=== PATIENT | male | born 1955 | race Caucasian/White ===

== ENCOUNTER 2019-08-29 04:12 | Inpatient (IN) ==
[2019-08-29] MEDS ORDERED: Furosemide 40 MG/4 ML VIAL ONE ×2 (04:19→19:17)
[2019-08-29] MEDS ORDERED: Furosemide 40 MG/4 ML VIAL IVP ONE ×2 (04:20→19:22)
[2019-08-29] MEDS ORDERED: methylPREDNISolone 125 MG/2 ML VIAL IVP ONE (04:27)
[2019-08-29 04:35] LABS: ABG Base Excess -9 mEq/L (-2 to 3); ABG HCO3 21 mEq/L (21-27); ABG Oxygen Saturation 100 % (95-98); ABG PCO2 60 mmHg (35-45); ABG PH 7.16 pH Units (7.32-7.45); ABG PO2 210 mmHg (85-104); ABG TCO2 23 mEq/L (20-26)
[2019-08-29 04:56] LABS: Eosinophils % 0.1 %; Red Cell Distribution Width 13.6 % (11.5-14.5)
[2019-08-29 04:58] LABS: Basophils # 0.1 K/mcL (0.0-0.2); Basophils % 0.3 %; Hematocrit 50.8 % (37.5-50.1); Hemoglobin 17.3 g/dL (12.9-16.9); Immature Granulocytes % 2.8 % (0-4); Lymphocytes # 2.4 K/mcL (0.6-4.6); Lymphocytes % 8.4 %; Mean Corpuscular HGB Conc 34.1 g/dL (31.6-35.5); Mean Corpuscular Hemoglobin 32.3 pg (28.0-33.3); Mean Platelet Volume 10.3 fL (9.4-12.4); Monocytes # 1.6 K/mcL (0.0-1.3); Monocytes % 5.4 %; Neutrophils # 23.9 K/mcL (1.6-8.9); Platelet Count 511 K/mcL (140-400); Red Blood Count 5.35 M/mcL (4.19-5.50); White Blood Count 28.8 K/mcL (4.3-11.1)
[2019-08-29 04:59] LABS: Prothrombin Time 11.5 Seconds (9.4-12.1)
[2019-08-29 05:17] LABS: BUN/Creatinine Ratio 7 (6-26); Blood Urea Nitrogen 9 mg/dL (8-23); Calcium 9.6 mg/dL (8.6-10.3); Carbon Dioxide 19 mEq/L (23-29); Chloride 98 mEq/L (98-107); Glucose 310 mg/dL (70-105); Osmolality,Calculated 286 (280-300); Potassium 3.6 mEq/L (3.5-5.1); Sodium 133 mEq/L (136-145); eGFR For African Americans > 60 (> 60); eGFR For Non-African Americans 53 (> 60)
[2019-08-29 05:20] LABS: Troponin I 0.29 ng/mL (< 0.04)
[2019-08-29] MEDS ORDERED: Aspirin 81 MG TAB.CHEW PO ONE (05:20)
[2019-08-29 05:40] LABS: ABG Base Excess -5 mEq/L (-2 to 3); ABG HCO3 21 mEq/L (21-27); ABG Oxygen Saturation 94 % (95-98); ABG PCO2 43 mmHg (35-45); ABG PO2 81 mmHg (85-104); ABG TCO2 23 mEq/L (20-26)
[2019-08-29] MEDS ORDERED: cefTRIAXone 1,000 MG in 0.9 % Sodium Chloride Mini Bag 100 ML IVPB ONE (06:11)
[2019-08-29] MEDS ORDERED: Azithromycin 500 MG in 0.9 % Sodium Chloride 250 ML IVPB ONE (06:11)
[2019-08-29] MEDS ORDERED: *HR* Heparin 5,000 UNIT/ML VIAL IVP PRN (06:11)
[2019-08-29] MEDS ORDERED: *HR* Heparin 5,000 UNIT/ML VIAL IVP ONE (06:11)
[2019-08-29] MEDS: Heparin 25,000 UNIT/250 ML D5W 25,000 UNIT/250 ML IV.SOLN IVC SCH (06:22)
[2019-08-29] MEDS ORDERED: *HR* Midazolam HCl 2 MG/2 ML VIAL IV ONE (06:23)
[2019-08-29] MEDS ORDERED: *HR* Etomidate 20 MG/10 ML AMPUL IVP ONE (06:23)
[2019-08-29] MEDS ORDERED: *HR* Midazolam HCl 5 MG/5 ML VIAL IVP ONE (06:23)
[2019-08-29] MEDS ORDERED: Naloxone 0.4 MG/ML INJ IVP PRN (07:26)
[2019-08-29] MEDS ORDERED: *HR* FentaNYL (PF) 100 MCG/2 ML VIAL ONE (07:41)
[2019-08-29] MEDS ORDERED: Ringers Solution, Lactated 1,000 ML ONE (07:41)
[2019-08-29] MEDS ORDERED: Perflutren Lipid Microsphere 1.3 ML in 0.9 % Sodium Chloride 8.7 ML IVP ONE ×2 (08:09→13:38)
[2019-08-29] MEDS: FentaNYL (PF) 1,000 MCG in 0.9 % Sodium Chloride 80 ML IVC SCH (08:15)
[2019-08-29] MEDS ORDERED: *HR* Phenylephrine 10 MG/ML VIAL ONE (08:29)
[2019-08-29] MEDS ORDERED: Phentolamine Mesylate 5 MG VIAL IJ ONE (08:30)
[2019-08-29] MEDS ORDERED: *HR* Phenylephrine 10 MG/ML VIAL IVC ONE (08:45)
[2019-08-29] MEDS ORDERED: *HR* FentaNYL (PF) 100 MCG/2 ML VIAL IVP ONE (08:46)
[2019-08-29] MEDS ORDERED: CLEAR EYES NATURAL TEARS 15 ML BOTTLE BOTH EYES PRN (09:32)
[2019-08-29] MEDS ORDERED: cefTRIAXone 1,000 MG in Water for inj. (sterile) 10 ML IVP ONE (09:54)
[2019-08-29] MEDS ORDERED: Dextrose Gel 15 GM/37.5 ML TUBE PO PRN ×2 (10:01)
[2019-08-29] MEDS ORDERED: D5% in Water 1,000 ML IVC PRN (10:01)
[2019-08-29] MEDS ORDERED: *HR* Dextrose 50 % in Water (Syg) 50 ML SYRINGE IVP PRN (10:01)
[2019-08-29 11:20] LABS: ABG Base Excess -4 mEq/L (-2 to 3); ABG HCO3 22 mEq/L (21-27); ABG Oxygen Saturation 99 % (95-98); ABG PCO2 41 mmHg (35-45); ABG PH 7.34 pH Units (7.32-7.45); ABG PO2 128 mmHg (85-104); ABG TCO2 23 mEq/L (20-26); Blood Gas Modality AF; Blood Gas VT 500 cc
[2019-08-29] MEDS: Pantoprazole 40 MG VIAL IVP SCH (11:55)
[2019-08-29] MEDS: CLEAR EYES NATURAL TEARS 15 ML BOTTLE BOTH EYES SCH ×4 (11:56→23:20)
[2019-08-29] MEDS: Insulin LISPRO 300 UNITS/3 ML VIAL SQ SCH ×3 (11:56→23:20)
[2019-08-29 12:47] LABS: Adenovirus Not Detected (Not Detect); Bordetella Pertussis Not Detected (Not Detect); Chlamydophila pneumoniae Not Detected (Not Detect); Coronavirus 229E Not Detected (Not Detect); Coronavirus HKU1 Not Detected (Not Detect); Coronavirus NL63 Not Detected (Not Detect); Coronavirus OC43 Not Detected (Not Detect); Human Metapneumovirus Not Detected (Not Detect); Human Rhinovirus/Enterovirus Not Detected (Not Detect); Influenza A Subtype 2009 H1 Not Detected (Not Detect); Influenza B Not Detected (Not Detect); Mycoplasma pneumoniae Not Detected (Not Detect); Parainfluenza Virus 1 Not Detected (Not Detect); Parainfluenza Virus 2 Not Detected (Not Detect); Parainfluenza Virus 3 Not Detected (Not Detect); Parainfluenza Virus 4 Not Detected (Not Detect)
[2019-08-29] MEDS ORDERED: 0.9 % Sodium Chloride 500 ML ONE (13:08)
[2019-08-29 17:16] LABS: Troponin I 15.44 ng/mL (< 0.04)
[2019-08-29] MEDS ORDERED: Furosemide 20 MG/2 ML VIAL IVP ONE (17:22)
[2019-08-29] MEDS: *HR* Heparin 5,000 UNIT/ML VIAL IVP PRN (17:33)
[2019-08-29] MEDS: Norepinephrine 4 MG in 0.9 % Sodium Chloride 250 ML IVC SCH (19:55)
[2019-08-29] MEDS: Chlorhexidine Rinse 15 ML MOUTHWASH MM SCH (19:57)
[2019-08-29 21:15] LABS: Albumin 3.8 g/dL (3.5-5.7); Albumin/Globulin Ratio 1.3 (1.1-2.2); Bilirubin,Direct 0.1 mg/dL (0.0-0.2); Bilirubin,Indirect 0.3 mg/dL (0.0-1.0); Bilirubin,Total 0.4 mg/dL (0.3-1.0); Globulin 2.9 g/dL (2.4-3.5); Potassium 4.4 mEq/L (3.5-5.1); Total Protein 6.7 g/dL (6.4-8.9)
[2019-08-29] MEDS: Levalbuterol Neb 1.25 MG/3 ML IH PRN (23:17)
[2019-08-30] MEDS ORDERED: Albumin 25% 25gram/100mL 25 GM/100 ML IV.SOLN IVPB ONE (00:30)
[2019-08-30] MEDS: FentaNYL (PF) 1,000 MCG in 0.9 % Sodium Chloride 80 ML IVC SCH ×2 (02:06→17:56)
[2019-08-30] MEDS ORDERED: Furosemide 40 MG/4 ML VIAL IVP ONE (02:14)
[2019-08-30] MEDS: CLEAR EYES NATURAL TEARS 15 ML BOTTLE BOTH EYES SCH ×6 (03:01→23:28)
[2019-08-30 03:47] LABS: ABG Base Excess 0 mEq/L (-2 to 3); ABG HCO3 24 mEq/L (21-27); ABG Oxygen Saturation 96 % (95-98); ABG PCO2 37 mmHg (35-45); ABG PH 7.42 pH Units (7.32-7.45); ABG PO2 82 mmHg (85-104); ABG TCO2 25 mEq/L (20-26); Blood Gas Modality ASSIST CONTROL; Blood Gas VT 500 cc
[2019-08-30 03:54] LABS: Eosinophils % 0.1 %; Lymphocytes % 4.3 %; Mean Platelet Volume 10.3 fL (9.4-12.4); Red Cell Distribution Width 13.7 % (11.5-14.5)
[2019-08-30 03:56] LABS: Basophils # 0.1 K/mcL (0.0-0.2); Basophils % 0.2 %; Hemoglobin 15.9 g/dL (12.9-16.9); Immature Granulocytes % 0.8 % (0-4); Lymphocytes # 1.2 K/mcL (0.6-4.6); Mean Corpuscular HGB Conc 34.6 g/dL (31.6-35.5); Mean Corpuscular Hemoglobin 32.1 pg (28.0-33.3); Mean Corpuscular Volume 92.7 fL (83.0-100.0); Monocytes # 2.1 K/mcL (0.0-1.3); Monocytes % 7.3 %; Neutrophils # 25.1 K/mcL (1.6-8.9); Platelet Count 405 K/mcL (140-400); Red Blood Count 4.96 M/mcL (4.19-5.50); Segmented Neutrophils % 87.3 %; White Blood Count 28.7 K/mcL (4.3-11.1)
[2019-08-30 04:14] LABS: Albumin 4.1 g/dL (3.5-5.7); Albumin/Globulin Ratio 1.6 (1.1-2.2); Bilirubin,Total 0.5 mg/dL (0.3-1.0); Calcium 9.1 mg/dL (8.6-10.3); Globulin 2.6 g/dL (2.4-3.5); Potassium 3.7 mEq/L (3.5-5.1); Total Protein 6.7 g/dL (6.4-8.9)
[2019-08-30 04:47] LABS: Troponin I 17.31 ng/mL (< 0.04)
[2019-08-30] MEDS: Insulin LISPRO 300 UNITS/3 ML VIAL SQ SCH ×4 (05:23→23:25)
[2019-08-30] MEDS: *HR* Heparin 5,000 UNIT/ML VIAL IVP PRN (06:50)
[2019-08-30] MEDS: Levalbuterol Neb 1.25 MG/3 ML IH PRN ×3 (07:29→21:29)
[2019-08-30] MEDS: Chlorhexidine Rinse 15 ML MOUTHWASH MM SCH ×2 (07:34→19:53)
[2019-08-30] MEDS: Aspirin 81 MG TAB.CHEW PO SCH (07:34)
[2019-08-30] MEDS: Pantoprazole 40 MG VIAL IVP SCH (07:36)
[2019-08-30] MEDS: cefTRIAXone 2,000 MG in Water for inj. (sterile) 20 ML IVP SCH (07:36)
[2019-08-30 07:39] LABS: Respiratory Syncytial Virus Not Detected (Not Detect)
[2019-08-30] MEDS: Heparin 25,000 UNIT/250 ML D5W 25,000 UNIT/250 ML IV.SOLN IVC SCH (08:05)
[2019-08-30] MEDS: Azithromycin 500 MG in 0.9 % Sodium Chloride 250 ML IVPB SCH (09:46)
[2019-08-30] MEDS ORDERED: Ringers Solution, Lactated 1,000 ML IVC SCH (10:45)
[2019-08-30 12:24] LABS: Protein/Creatinine Ratio,Urine 0.61 mg/mg (0.00-0.20); Sodium, Urine 12.4 mEq/L
[2019-08-30 12:48] LABS: Complement C3 124 mg/dL (87-200)
[2019-08-30] MEDS ORDERED: Albumin 25% 25gram/100mL 25 GM/100 ML IV.SOLN IVPB SCH (16:00)
[2019-08-30] MEDS: Norepinephrine 4 MG in 0.9 % Sodium Chloride 250 ML IVC SCH (19:49)
[2019-08-31] MEDS: Levalbuterol Neb 1.25 MG/3 ML IH PRN ×3 (02:55→21:10)
[2019-08-31 03:09] LABS: Basophils # 0.1 K/mcL (0.0-0.2); Basophils % 0.2 %; Hematocrit 44.2 % (37.5-50.1); Hemoglobin 14.6 g/dL (12.9-16.9); Immature Granulocytes % 0.8 % (0-4); Lymphocytes # 1.4 K/mcL (0.6-4.6); Lymphocytes % 6.4 %; Mean Corpuscular Hemoglobin 31.8 pg (28.0-33.3); Mean Corpuscular Volume 96.3 fL (83.0-100.0); Mean Platelet Volume 10.4 fL (9.4-12.4); Monocytes # 2.1 K/mcL (0.0-1.3); Monocytes % 9.5 %; Neutrophils # 18.7 K/mcL (1.6-8.9); Platelet Count 336 K/mcL (140-400); Red Blood Count 4.59 M/mcL (4.19-5.50); Red Cell Distribution Width 14.1 % (11.5-14.5); Segmented Neutrophils % 83.1 %; White Blood Count 22.5 K/mcL (4.3-11.1)
[2019-08-31] MEDS: CLEAR EYES NATURAL TEARS 15 ML BOTTLE BOTH EYES SCH ×6 (03:12→23:24)
[2019-08-31 03:31] LABS: Albumin 3.7 g/dL (3.5-5.7); Albumin/Globulin Ratio 1.5 (1.1-2.2); Bilirubin,Total 0.4 mg/dL (0.3-1.0); Calcium 8.7 mg/dL (8.6-10.3); Globulin 2.5 g/dL (2.4-3.5); Total Protein 6.2 g/dL (6.4-8.9)
[2019-08-31 03:34] LABS: Troponin I 15.6 ng/mL (< 0.04)
[2019-08-31] MEDS: FentaNYL (PF) 1,000 MCG in 0.9 % Sodium Chloride 80 ML IVC SCH ×2 (03:54→21:37)
[2019-08-31] MEDS: Heparin 25,000 UNIT/250 ML D5W 25,000 UNIT/250 ML IV.SOLN IVC SCH (03:55)
[2019-08-31 04:35] LABS: ABG Base Excess 0 mEq/L (-2 to 3); ABG HCO3 27 mEq/L (21-27); ABG Oxygen Saturation 95 % (95-98); ABG PCO2 51 mmHg (35-45); ABG PH 7.33 pH Units (7.32-7.45); ABG PO2 80 mmHg (85-104); ABG TCO2 29 mEq/L (20-26); Blood Gas VT 500 cc
[2019-08-31] MEDS: Insulin LISPRO 300 UNITS/3 ML VIAL SQ SCH ×4 (05:20→23:25)
[2019-08-31] MEDS ORDERED: Furosemide 40 MG/4 ML VIAL IVP ONE (07:15)
[2019-08-31 07:31] LABS: Magnesium 2.2 mg/dL (1.6-2.6)
[2019-08-31] MEDS: Chlorhexidine Rinse 15 ML MOUTHWASH MM SCH ×2 (08:09→19:48)
[2019-08-31] MEDS: cefTRIAXone 2,000 MG in Water for inj. (sterile) 20 ML IVP SCH (08:09)
[2019-08-31] MEDS: Pantoprazole 40 MG VIAL IVP SCH (08:10)
[2019-08-31] MEDS: Aspirin 81 MG TAB.CHEW PO SCH ×2 (08:26→09:59)
[2019-08-31] MEDS: Azithromycin 500 MG in 0.9 % Sodium Chloride 250 ML IVPB SCH (09:55)
[2019-08-31] MEDS: Dexmedetomidine HCl 400 MCG/100 ML MLS IVC SCH (10:08)
[2019-08-31 10:21] LABS: Mycoplasma pneumoniae IgG 0.19 U/L (<=0.09)
[2019-08-31] MEDS ORDERED: Nitroglycerin 1,000 MCG/10 ML VIAL IV ONE (10:27)
[2019-08-31] MEDS ORDERED: ISOVUE-370 200 ML INFUS..BTL ONE ×2 (10:27→12:00)
[2019-08-31] MEDS ORDERED: *HR* Heparin 10,000 UNIT/10 ML VIAL ONE (10:27)
[2019-08-31] MEDS ORDERED: Heparin 1,000 UNITS/500 mL 500 ML ONE ×2 (10:27→11:58)
[2019-08-31] MEDS ORDERED: 0.9 % Sodium Chloride 1,000 ML ONE ×2 (10:27→10:34)
[2019-08-31] MEDS ORDERED: Tirofiban 12.5 MG/250ML 12.5 MG/250 ML BAG ONE (11:55)
[2019-08-31] MEDS ORDERED: EPINEPHrine 1 MG/ML VIAL ONE (11:59)
[2019-08-31] MEDS ORDERED: *HR* Ticagrelor 90 MG TABLET ONE (12:51)
[2019-08-31] MEDS ORDERED: Tirofiban 12.5 MG/250ML 12.5 MG/250 ML BAG IVC SCH (13:00)
[2019-08-31] MEDS: Pantoprazole 40 MG in 0.9 % Sodium Chloride Mini Bag 100 ML IVC SCH ×2 (14:30→18:36)
[2019-08-31 14:45] LABS: Basophils # 0.1 K/mcL (0.0-0.2); Basophils % 0.3 %; Eosinophils % 0.1 %; Hematocrit 42.5 % (37.5-50.1); Lymphocytes # 0.9 K/mcL (0.6-4.6); Lymphocytes % 5.1 %; Mean Corpuscular HGB Conc 32.9 g/dL (31.6-35.5); Mean Corpuscular Hemoglobin 31.1 pg (28.0-33.3); Mean Corpuscular Volume 94.4 fL (83.0-100.0); Mean Platelet Volume 10.4 fL (9.4-12.4); Monocytes # 1.7 K/mcL (0.0-1.3); Monocytes % 9.3 %; Neutrophils # 15.4 K/mcL (1.6-8.9); Platelet Count 353 K/mcL (140-400); Red Cell Distribution Width 14.3 % (11.5-14.5); Segmented Neutrophils % 84.2 %; White Blood Count 18.3 K/mcL (4.3-11.1)
[2019-08-31] MEDS: *HR* Atropine Sulfate 1 MG/10 ML SYRINGE ONE (18:46)
[2019-08-31 19:07] LABS: Basophils # 0.1 K/mcL (0.0-0.2); Basophils % 0.2 %; Hematocrit 44.5 % (37.5-50.1); Hemoglobin 14.5 g/dL (12.9-16.9); Immature Granulocytes % 1.3 % (0-4); Lymphocytes # 0.5 K/mcL (0.6-4.6); Lymphocytes % 2.3 %; Mean Corpuscular HGB Conc 32.6 g/dL (31.6-35.5); Mean Corpuscular Hemoglobin 30.9 pg (28.0-33.3); Mean Corpuscular Volume 94.7 fL (83.0-100.0); Mean Platelet Volume 10.4 fL (9.4-12.4); Monocytes # 1.5 K/mcL (0.0-1.3); Monocytes % 6.9 %; Neutrophils # 19.9 K/mcL (1.6-8.9); Platelet Count 380 K/mcL (140-400); Red Cell Distribution Width 14.1 % (11.5-14.5); Segmented Neutrophils % 89.3 %; White Blood Count 22.2 K/mcL (4.3-11.1)
[2019-08-31] MEDS: Norepinephrine 4 MG in 0.9 % Sodium Chloride 250 ML IVC SCH (19:34)
[2019-08-31] MEDS: *HR* Ticagrelor 90 MG TABLET PO SCH (19:40)
[2019-09-01] MEDS: Pantoprazole 40 MG in 0.9 % Sodium Chloride Mini Bag 100 ML IVC SCH ×5 (00:06→19:58)
[2019-09-01] MEDS: Dexmedetomidine HCl 400 MCG/100 ML MLS IVC SCH ×4 (00:30→19:39)
[2019-09-01] MEDS: Norepinephrine 4 MG in 0.9 % Sodium Chloride 250 ML IVC SCH (00:32)
[2019-09-01] MEDS: CLEAR EYES NATURAL TEARS 15 ML BOTTLE BOTH EYES SCH ×6 (03:04→23:35)
[2019-09-01] MEDS: Levalbuterol Neb 1.25 MG/3 ML IH PRN (03:05)
[2019-09-01 03:44] LABS: Basophils % 0.2 %; Hematocrit 40.8 % (37.5-50.1); Hemoglobin 13.6 g/dL (12.9-16.9); Immature Granulocytes % 1.2 % (0-4); Lymphocytes # 0.6 K/mcL (0.6-4.6); Lymphocytes % 2.9 %; Mean Corpuscular HGB Conc 33.3 g/dL (31.6-35.5); Mean Corpuscular Hemoglobin 31.2 pg (28.0-33.3); Mean Corpuscular Volume 93.6 fL (83.0-100.0); Mean Platelet Volume 10.4 fL (9.4-12.4); Monocytes # 1.4 K/mcL (0.0-1.3); Monocytes % 6.6 %; Neutrophils # 18.9 K/mcL (1.6-8.9); Platelet Count 366 K/mcL (140-400); Red Blood Count 4.36 M/mcL (4.19-5.50); Red Cell Distribution Width 13.9 % (11.5-14.5); Segmented Neutrophils % 89.1 %; White Blood Count 21.2 K/mcL (4.3-11.1)
[2019-09-01 03:52] LABS: VBG Ionized Calcium 1.15 mmol/L (1.15-1.35)
[2019-09-01 04:02] LABS: Albumin 3.2 g/dL (3.5-5.7); Albumin/Globulin Ratio 1.1 (1.1-2.2); Bilirubin,Total 0.5 mg/dL (0.3-1.0); Calcium 8.7 mg/dL (8.6-10.3); Globulin 2.8 g/dL (2.4-3.5); Potassium 3.9 mEq/L (3.5-5.1)
[2019-09-01 04:03] LABS: Magnesium 2.6 mg/dL (1.6-2.6); Phosphorous 3.8 mg/dL (2.7-4.5)
[2019-09-01 04:28] LABS: ABG Base Excess 0 mEq/L (-2 to 3); ABG HCO3 26 mEq/L (21-27); ABG Oxygen Saturation 96 % (95-98); ABG PCO2 50 mmHg (35-45); ABG PH 7.33 pH Units (7.32-7.45); ABG PO2 86 mmHg (85-104); ABG TCO2 28 mEq/L (20-26); Blood Gas Modality VC; Blood Gas VT 500 cc
[2019-09-01] MEDS: Insulin LISPRO 300 UNITS/3 ML VIAL SQ SCH ×4 (05:03→23:35)
[2019-09-01] MEDS: Heparin 25,000 UNIT/250 ML D5W 25,000 UNIT/250 ML IV.SOLN IVC SCH (05:10)
[2019-09-01] MEDS: Aspirin 81 MG TAB.CHEW PO SCH (08:30)
[2019-09-01] MEDS: *HR* Ticagrelor 90 MG TABLET PO SCH ×2 (08:30→20:12)
[2019-09-01] MEDS: cefTRIAXone 2,000 MG in Water for inj. (sterile) 20 ML IVP SCH (08:30)
[2019-09-01] MEDS: Chlorhexidine Rinse 15 ML MOUTHWASH MM SCH ×2 (08:32→20:11)
[2019-09-01] MEDS ORDERED: Aspirin 81 MG TAB.CHEW PO SCH (09:00)
[2019-09-01] MEDS ORDERED: *HR* Atropine Sulfate 1 MG/10 ML SYRINGE ONE (09:01)
[2019-09-01] MEDS: FentaNYL (PF) 1,000 MCG in 0.9 % Sodium Chloride 80 ML IVC SCH (09:57)
[2019-09-01] MEDS ORDERED: Potassium Chloride Elixir 20 MEQ/15 ML UDC GTUBE ONE (11:50)
[2019-09-01] MEDS: *HR* Atropine Sulfate 1 MG/10 ML SYRINGE ONE (12:14)
[2019-09-01 14:21] LABS: ANA IgG by ELISA NONE DETECTED (None Detected)
[2019-09-01] MEDS: Albumin 25% 25gram/100mL 25 GM/100 ML IV.SOLN IVPB SCH ×2 (14:58→23:30)
[2019-09-01] MEDS: *HR* Heparin 5,000 UNIT/ML VIAL SQ SCH (17:52)
[2019-09-02] MEDS: Pantoprazole 40 MG in 0.9 % Sodium Chloride Mini Bag 100 ML IVC SCH ×2 (00:31→05:05)
[2019-09-02] MEDS: Dexmedetomidine HCl 400 MCG/100 ML MLS IVC SCH ×3 (01:09→17:09)
[2019-09-02] MEDS: CLEAR EYES NATURAL TEARS 15 ML BOTTLE BOTH EYES SCH ×6 (04:13→23:11)
[2019-09-02 04:38] LABS: ABG Base Excess 0 mEq/L (-2 to 3); ABG HCO3 27 mEq/L (21-27); ABG Oxygen Saturation 91 % (95-98); ABG PCO2 53 mmHg (35-45); ABG PH 7.32 pH Units (7.32-7.45); ABG PO2 66 mmHg (85-104); ABG TCO2 29 mEq/L (20-26); Blood Gas Modality ASSIST CONTROL; Blood Gas VT 500 cc
[2019-09-02] MEDS: *HR* Heparin 5,000 UNIT/ML VIAL SQ SCH (04:48)
[2019-09-02] MEDS: Insulin LISPRO 300 UNITS/3 ML VIAL SQ SCH ×4 (05:44→23:19)
[2019-09-02 07:43] LABS: Basophils % 0.2 %; Eosinophils % 0.2 %; Hematocrit 40.3 % (37.5-50.1); Hemoglobin 13.4 g/dL (12.9-16.9); Immature Granulocytes % 0.9 % (0-4); Lymphocytes # 0.5 K/mcL (0.6-4.6); Lymphocytes % 3.1 %; Mean Corpuscular HGB Conc 33.3 g/dL (31.6-35.5); Mean Corpuscular Hemoglobin 31.8 pg (28.0-33.3); Mean Corpuscular Volume 95.7 fL (83.0-100.0); Mean Platelet Volume 10.5 fL (9.4-12.4); Monocytes # 1.7 K/mcL (0.0-1.3); Monocytes % 9.5 %; Platelet Count 357 K/mcL (140-400); Red Blood Count 4.21 M/mcL (4.19-5.50); Red Cell Distribution Width 13.9 % (11.5-14.5); Segmented Neutrophils % 86.1 %; White Blood Count 17.5 K/mcL (4.3-11.1)
[2019-09-02 08:03] LABS: Albumin/Globulin Ratio 1.7 (1.1-2.2); Bilirubin,Total 0.6 mg/dL (0.3-1.0); Calcium 9.2 mg/dL (8.6-10.3); Globulin 2.4 g/dL (2.4-3.5); Potassium 4.3 mEq/L (3.5-5.1); Total Protein 6.4 g/dL (6.4-8.9)
[2019-09-02] MEDS: Furosemide 20 MG/2 ML VIAL IVP SCH ×2 (08:09→17:09)
[2019-09-02] MEDS: *HR* Ticagrelor 90 MG TABLET PO SCH ×2 (08:10→20:14)
[2019-09-02] MEDS: Chlorhexidine Rinse 15 ML MOUTHWASH MM SCH ×2 (08:10→20:14)
[2019-09-02] MEDS: Piperacillin/Tazobactam 3.375 GM in 0.9 % Sodium Chloride Mini Bag 100 ML IVPB SCH ×3 (08:10→23:13)
[2019-09-02] MEDS: Aspirin 81 MG TAB.CHEW PO SCH (08:10)
[2019-09-02] MEDS: FentaNYL (PF) 1,000 MCG in 0.9 % Sodium Chloride 80 ML IVC SCH ×2 (08:11→18:20)
[2019-09-02] MEDS: Albumin 25% 25gram/100mL 25 GM/100 ML IV.SOLN IVPB SCH ×3 (08:11→23:11)
[2019-09-02] MEDS ORDERED: Furosemide 20 MG/2 ML VIAL IVP ONE (09:05)
[2019-09-02] MEDS: Levalbuterol Neb 1.25 MG/3 ML IH PRN (09:17)
[2019-09-02 09:54] LABS: Bilirubin,Urine Negative (Negative); Blood,Urine Large (Negative); Glucose,Urine (UA) Normal (Normal); Ketones,Urine Negative (Negative); Leukocyte Esterase,Urine Small (Negative); Nitrite,Urine Negative (Negative); Protein,Urine 30 mg/dL (Neg-Trace); Specific Gravity,Urine 1.022 (1.010-1.025); Urobilinogen,Urine Normal (Normal)
[2019-09-02 09:57] LABS: Bacteria,Urine None Seen per hpf (None-Few); Squamous Epithelial Cell,Urine Many per lpf (None-Few)
[2019-09-02 09:59] LABS: Clarity,Urine Slightly Cloudy (Clear); Color,Urine Yellow (Yellow)
[2019-09-02 10:07] LABS: RBC,Urine 30-50 per hpf (0-3)
[2019-09-02 10:09] LABS: Hyaline Casts,Urine Few per lpf (None-Few)
[2019-09-02] MEDS ORDERED: Aminoglycoside Consult 1 EACH MC ONE (12:20)
[2019-09-02] MEDS ORDERED: *HR* Atropine Sulfate 1 MG/10 ML SYRINGE ONE (12:56)
[2019-09-02 15:33] LABS: Basophils % 0.2 %; Hematocrit 38.5 % (37.5-50.1); Hemoglobin 12.8 g/dL (12.9-16.9); Immature Granulocytes % 0.8 % (0-4); Lymphocytes # 0.9 K/mcL (0.6-4.6); Lymphocytes % 5.4 %; Mean Corpuscular HGB Conc 33.2 g/dL (31.6-35.5); Mean Corpuscular Hemoglobin 31.9 pg (28.0-33.3); Mean Platelet Volume 10.2 fL (9.4-12.4); Monocytes # 1.7 K/mcL (0.0-1.3); Monocytes % 10.6 %; Neutrophils # 13.1 K/mcL (1.6-8.9); Platelet Count 368 K/mcL (140-400); Red Blood Count 4.01 M/mcL (4.19-5.50); Red Cell Distribution Width 13.8 % (11.5-14.5); White Blood Count 15.8 K/mcL (4.3-11.1)
[2019-09-02 15:41] LABS: INR 1.2; Prothrombin Time 13.8 Seconds (9.4-12.1)
[2019-09-02 15:44] LABS: Activated Partial Thrombo Time 27.3 Seconds (26.0-36.0)
[2019-09-02] MEDS: Norepinephrine 4 MG in 0.9 % Sodium Chloride 250 ML IVC SCH (19:18)
[2019-09-02] MEDS: Ipratropium/Albuterol Neb 3 ML IH PRN ×2 (20:02→23:44)
[2019-09-02] MEDS: Pantoprazole 40 MG VIAL IVP SCH (20:14)
[2019-09-03] MEDS: Furosemide 20 MG/2 ML VIAL IVP SCH (02:15)
[2019-09-03] MEDS: CLEAR EYES NATURAL TEARS 15 ML BOTTLE BOTH EYES SCH ×2 (03:41→08:43)
[2019-09-03] MEDS ORDERED: EPINEPHrine 1 MG in D5% in Water 250 ML IVC SCH (04:00)
[2019-09-03 04:26] LABS: ABG Base Excess -1 mEq/L (-2 to 3); ABG HCO3 28 mEq/L (21-27); ABG Oxygen Saturation 88 % (95-98); ABG PCO2 61 mmHg (35-45); ABG PH 7.26 pH Units (7.32-7.45); ABG PO2 63 mmHg (85-104); ABG TCO2 30 mEq/L (20-26); Blood Gas Modality VC; Blood Gas VT 500 cc
[2019-09-03] MEDS: Insulin LISPRO 300 UNITS/3 ML VIAL SQ SCH (04:34)
[2019-09-03 04:50] LABS: Basophils # 0.1 K/mcL (0.0-0.2); Basophils % 0.5 %; Eosinophils # 0.1 K/mcL (0.0-0.6); Eosinophils % 0.4 %; Hematocrit 40.9 % (37.5-50.1); Hemoglobin 12.9 g/dL (12.9-16.9); Immature Granulocytes % 1.5 % (0-4); Lymphocytes # 0.7 K/mcL (0.6-4.6); Lymphocytes % 4.2 %; Mean Corpuscular HGB Conc 31.5 g/dL (31.6-35.5); Mean Corpuscular Hemoglobin 30.7 pg (28.0-33.3); Mean Corpuscular Volume 97.4 fL (83.0-100.0); Monocytes # 2.2 K/mcL (0.0-1.3); Monocytes % 13.2 %; Neutrophils # 13.5 K/mcL (1.6-8.9); Platelet Count 401 K/mcL (140-400); Red Cell Distribution Width 14.1 % (11.5-14.5); Segmented Neutrophils % 80.2 %; White Blood Count 16.9 K/mcL (4.3-11.1)
[2019-09-03] MEDS: Pantoprazole 40 MG VIAL IVP SCH (05:07)
[2019-09-03] MEDS: FentaNYL (PF) 1,000 MCG in 0.9 % Sodium Chloride 80 ML IVC SCH (05:08)
[2019-09-03 05:10] LABS: Albumin 4.4 g/dL (3.5-5.7); Albumin/Globulin Ratio 2.1 (1.1-2.2); Bilirubin,Total 0.8 mg/dL (0.3-1.0); Calcium 9.2 mg/dL (8.6-10.3); Globulin 2.1 g/dL (2.4-3.5); Potassium 3.9 mEq/L (3.5-5.1); Total Protein 6.5 g/dL (6.4-8.9)
[2019-09-03] MEDS: Piperacillin/Tazobactam 3.375 GM in 0.9 % Sodium Chloride Mini Bag 100 ML IVPB SCH (08:40)
[2019-09-03] MEDS: Albumin 25% 25gram/100mL 25 GM/100 ML IV.SOLN IVPB SCH (08:40)
[2019-09-03] MEDS: Chlorhexidine Rinse 15 ML MOUTHWASH MM SCH (08:41)
[2019-09-03] MEDS: Aspirin 81 MG TAB.CHEW PO SCH (08:42)
[2019-09-03] MEDS: *HR* Ticagrelor 90 MG TABLET PO SCH (08:42)
[2019-09-03 09:37] VITALS: BP 121/66
== END 2019-09-03 12:21 | disposition expired ==
LOC: EMEROOARM 04:12 → 2NNU 04:12 → ICNU 07:22
PROVIDERS: ADMIT Internal Medicine; ATTEND Internal Medicine